=== PATIENT | male | born 1955 | race Caucasian/White ===

== ENCOUNTER 2023-05-13 11:38 | Emergency (ER) | payer OTHER ==
[2023-05-13] MEDS: Benzocaine 20% Topical Spray UD MUCMEM STA (12:59)
[2023-05-13] MEDS: Benzocaine 20% Topical Spray UD MUCMEM ONE (13:38)
[2023-05-13] MEDS: Lidocaine 2% Viscous Solution 15 ML UD PO ONE (13:38)
== END 2023-05-13 13:40 | disposition home or self-care (01) ==
LOC: MW.ED 11:38
DX: K04.7 Periapical abscess without sinus (principal)
CPT/HCPCS: 41800; 99283; A9270